=== PATIENT | male | born 1935 | race Caucasian/White ===

== ENCOUNTER 2017-04-20 07:28 | Emergency (ER) | payer OTHER ==
[2017-04-20 07:34] VITALS: RESP 16; TEMP 98.1
--- NOTE | 2017-04-20 07:52 | EDPHY ---
H & P Stated Complaint: sore throat Time Seen by Provider: 04/20/17 07:43 HPI/ROS: Chief Complaint: Sore throat HPI: 81-year-old male presenting with 1 day of sore throat and difficulty swallowing. Patient states that he had a little bit sore throat last night but had pain with swallowing his normal medications this morning. He has been exposed to his grandson who is noted to be a strep carrier. Denies any fevers or chills. Is handling his secretions and is tolerating fluids and food without significant difficulty. Does not have a history of prior throat infections. No fevers or chills. No difficulty breathing. No hearing changes. No change in his voice. ROS: 10 point Review of Systems is negative except as noted in the HPI. PMH: Prostate cancer, hypertension, Coffman's esophagus, knee surgery, minimal change disease Medications: Hydrochlorothiazide, Prilosec Allergies: Erythromycin Social History: No smoking, occasional alcohol, no recreational drug use Family History: non-contributory Physical Exam: Gen: Awake, Alert, No Distress HEENT: Nose: no rhinorrhea Eyes: PERRLA, EOMI Mouth: Moist mucosa mild diffuse oral pharyngeal erythema without exudate or edema Neck: Supple, no JVD, no lymphadenopathy, masses or fluctuance Chest: nontender, lungs clear to auscultation Heart: S1, S2 normal, no murmur Abd: Soft, non-tender, no guarding Back: no CVA tenderness, no midline tenderness Ext: no edema, non-tender Skin: no rash Neuro: CN II-XII intact, Sensation grossly intact, Strength 5/5 in bilateral upper and lower extremities - Personal History Current Tetanus/Diphtheria Vaccine: Unsure - Medical/Surgical History Hx Asthma: No Hx Chronic Respiratory Disease: No Hx Diabetes: No Hx Cardiac Disease: No Hx Renal Disease: No Hx Cirrhosis: No Hx Alcoholism: No Hx HIV/AIDS: No Hx Splenectomy or Spleen Trauma: No Other PMH: prostate cancer - Social History Smoking Status: Never smoked Constitutional: Initial Vital Signs Temperature (C) 36.7 C 04/20/17 07:32 Heart Rate 66 04/20/17 07:32 Respiratory Rate 16 04/20/17 07:32 Blood Pressure 164/90 H 04/20/17 07:32 O2 Sat (%) 95 04/20/17 07:32 O2 Delivery Mode Room Air Allergies/Adverse Reactions: erythromycin base [Erythromycin Base] Allergy (Verified 04/20/17 07:31) Home Medications: Medication Instructions Recorded Hydrochlorothiazide 10/31/09 Nexium 10/31/09 Zocor 10/31/09 Medical Decision Making ED Course/Re-evaluation: Strep screen is negative. Exam findings are consistent with viral pharyngitis. Will give him a dose of Decadron here as an anti-inflammatory. Patient will be discharged with follow up with primary care physician continue with ibuprofen and acetaminophen. He may use topical [id number] sprays as needed. - Data Points Laboratory Results: 04/20/17 04/20/17 Unknown 07:40 Group A Strep Screen NEGATIVE (NEGATIVE) Group A Strep DNA Pending Departure - Departure Disposition: Home, Routine, Self-Care Clinical Impression: Acute pharyngitis Condition: Good Instructions: Pharyngitis (ED) Additional Instructions: You may take ibuprofen alternating with acetaminophen as needed for fevers, chills, aches or pains. You may use [id number] topical throat sprays such as Chloraseptic according to label instructions. The steroids you took in the emergency department should provide you with relief over the next 72 hours. Follow up with her primary care physician in 2-3 days if symptoms are not improving. Referrals: Hunter Hussein MD [Primary Care Provider] - As per Instructions
[2017-04-20] MEDS ORDERED: DEXAMETHASONE 4 MG TAB PO ONE (08:04)
[2017-04-20 08:17] VITALS: BP 173/99; PULSE 61; O2SAT 94
== END 2017-04-20 08:18 | disposition home or self-care (01) ==
DX: J02.9 Acute pharyngitis, unspecified (principal); I10 Essential (primary) hypertension; Z85.46 Personal history of malignant neoplasm of prostate

== ENCOUNTER → 2018-08-11 | Outpatient (CLI) | payer OTHER | LOC: BMCIMAGING 13:26 | PROVIDERS: ATTEND Internal Medicine | DX: Z13.820 Encounter for screening for osteoporosis (principal); M85.89 Other specified disorders of bone density and structure, multiple sites; S22.060A Wedge compression fracture of T7-T8 vertebra, initial encounter for closed fracture; S32.010A Wedge compression fracture of first lumbar vertebra, initial encounter for closed fracture; C61 Malignant neoplasm of prostate ==

== ENCOUNTER → 2018-09-22 | Outpatient (CLI) | payer OTHER | LOC: BMCIMAGING 08:06 | PROVIDERS: ATTEND Internal Medicine | DX: R10.13 Epigastric pain (principal) ==

== ENCOUNTER → 2018-10-28 | Outpatient (CLI) | payer OTHER ==
[~2018-10-28] MED LIST: IOPAMIDOL (ISOVUE 370) 100 ML BTL IV ONE
== END ==
LOC: FIMAGING 08:17
PROVIDERS: ATTEND Physician Assistant
DX: R19.03 Right lower quadrant abdominal swelling, mass and lump (principal); K59.00 Constipation, unspecified; Z90.79 Acquired absence of other genital organ(s)
CPT/HCPCS: 74177; Q9967

== ENCOUNTER 2019-02-16 22:24 | Emergency (ER) | payer OTHER ==
[2019-02-16] MEDS ORDERED: HYDROCHLOROTHIAZIDE 25 MG TAB PO ONE (23:14)
--- NOTE | 2019-02-16 23:19 | EDPHY ---
H & P Stated Complaint: elevated bp Time Seen by Provider: 02/16/19 23:01 HPI/ROS: HPI The patient presents with elevated blood pressure which he noted tonight, blood pressure of 220/117 at 2 separate grocery stores. The patient has a known history of hypertension followed by his primary care doctor Dr. Britt. He initially was on hydrochlorothiazide, however about 1 year ago switched to lisinopril 10 mg. At the end of October he was admitted to the hospital and was noted to have blood pressures in the 160s to 170s over 90s and thus his lisinopril was increased to 20 mg a day with good result with blood pressures in the 130s over 70s. He has been periodically checking his blood pressures and has noted that lately they have been again in the 160s to 70s over 90s. Because of this he has been monitoring them closely and got these readings tonight. He denies any confusion, weakness, headache, chest pain, shortness of breath, vomiting, abdominal pain. REVIEW OF SYSTEMS 10 systems were reviewed and negative with the exception of the elements mentioned in the history of present illness. PMHx: Hypertension, history of prostate and colon cancer, primary care doctor is Dr. Britt Soc Hx: Lives at home with his PHYSICAL General Appearance: Alert, no distress Eyes: Pupils equal and round no pallor or injection ENT, Mouth: Mucous membranes moist Respiratory: There are no retractions, lungs are clear to auscultation Cardiovascular: Regular rate and rhythm Gastrointestinal: Abdomen is soft and non-tender, no masses, bowel sounds normal Neurological: A&O, moves all extremities Skin: Warm and dry, left shoulder with sutures in place Musculoskeletal: Neck is supple non tender Extremities: symmetrical, full range of motion Psychiatric: Patient is oriented X 3, there is no agitation Source: Patient Exam Limitations: No limitations - Personal History Current Tetanus/Diphtheria Vaccine: Yes - Medical/Surgical History Hx Asthma: No Hx Chronic Respiratory Disease: No Hx Diabetes: No Hx Cardiac Disease: No Hx Renal Disease: No Hx Cirrhosis: No Hx Alcoholism: No Hx HIV/AIDS: No Hx Splenectomy or Spleen Trauma: No Other PMH: prostate cancer. colon ca. l knee replacement - Social History Smoking Status: Never smoked Constitutional: Initial Vital Signs Temperature (C) 36.5 C 02/16/19 22:28 Heart Rate 71 02/16/19 22:28 Respiratory Rate 18 04/23/19 22:28 O2 Sat (%) 96 02/16/19 22:28 O2 Delivery Mode Room Air Allergies/Adverse Reactions: erythromycin base [Erythromycin Base] Allergy (Verified 04/20/17 07:31) Home Medications: Medication Instructions Recorded Nexium 10/31/09 Zocor 10/31/09 Aspirin 81mg (*) 02/16/19 Lisinopril 02/16/19 Hydrochlorothiazide [HCTZ (*)] 25 mg PO DAILY #30 tab 02/17/19 Medical Decision Making Differential Diagnosis: 83-year-old man with known history of hypertension presents with elevated blood pressures in the absence of symptoms. He has had some medication adjustments over the last 1 year. He has noted a slow rise in his blood pressure which was initially noted in October when he was admitted to the hospital which resulted in increase in his lisinopril from 10-20 mg. He since discharge has noted his blood pressure is rising once again, 160s over 90s for the most part, however today to 220s over 1 teens. Plan for treatment here with oral HCTZ, will check EKG and creatinine. Suspect we may need to add 2nd agent for blood pressure control. Patient's blood pressure improved minimally with oral HCTZ, he was given a dose of labetalol. This improved his blood pressure. EKG and labs were unremarkable. Given the significant elevation in his blood pressure tonight with trend of elevated blood pressures at home. I will start him on HCTZ 25 mg in addition to the lisinopril. I have advised him that he needs to follow up with his primary care doctor and check his blood pressures daily. - Data Points Laboratory Results: 02/16/19 23:36 POC Hgb 13.6 gm/dL L gm/dL (13.7-17.5) POC Hct 40 % % (40-51) POC Sodium 141 mEq/L mEq/L (135-145) POC Potassium 3.7 mEq/L mEq/L (3.3-5.0) POC Chloride 101 mEq/L mEq/L (97-110) POC Total CO2 26 mEq/L mEq/L (22-31) POC BUN 15 mg/dL mg/dL (7-23) POC Creatinine 1.2 mg/dL mg/dL (0.7-1.3) POC Glucose 95 mg/dL mg/dL (70-100) Medications Given: Discontinued Medications Hydrochlorothiazide (Hydrochlorothiazide) 25 mg PO EDNOW ONE Stop: 02/16/19 23:15 Last Admin: 02/16/19 23:30 Dose: 25 mg Labetalol HCl (Trandate Injection) 20 mg IVP ONCE ONE Stop: 02/17/19 00:25 Last Admin: 02/17/19 00:32 Dose: 20 mg Point of Care Test Results: Chemistry 02/16/19 23:36 POC Sodium 141 mEq/L mEq/L (135-145) POC Potassium 3.7 mEq/L mEq/L (3.3-5.0) POC Chloride 101 mEq/L mEq/L (97-110) POC Total CO2 26 mEq/L mEq/L (22-31) POC BUN 15 mg/dL mg/dL (7-23) POC Creatinine 1.2 mg/dL mg/dL (0.7-1.3) POC Glucose 95 mg/dL mg/dL (70-100) ISTAT H&H 02/16/19 23:36 POC Hgb 13.6 gm/dL L gm/dL (13.7-17.5) POC Hct 40 % % (40-51) Departure - Departure Disposition: Home, Routine, Self-Care Clinical Impression: Elevated blood pressure reading HTN (hypertension) Qualifiers: Hypertension type: unspecified Qualified Code(s): I10 - Essential (primary) hypertension Condition: Good Instructions: Chronic Hypertension (ED), Hypertensive Crisis (ED) Additional Instructions: Please check your blood pressure daily. If you get any low readings (90/60 or below) or if your feeling dizzy or lightheaded, I would like for you to follow up with your primary care doctor immediately and stop taking the hydrochlorothiazide. Referrals: Kevin Britt MD [Primary Care Provider] - As per Instructions Prescriptions: Hydrochlorothiazide [HCTZ (*)] 25 mg PO DAILY #30 tab
[2019-02-17] MEDS ORDERED: LABETALOL HCL 5 MG/ML 20 ML MDV IVP ONE (00:24)
[2019-02-17 00:52] VITALS: BP 177/104
--- NOTE | 2019-02-19 06:36 | CPEKG ---
Test Reason : OPEN Blood Pressure : / mmHG Vent. Rate : 064 BPM Atrial Rate : 068 BPM P-R Int : 219 ms QRS Dur : 093 ms QT Int : 431 ms P-R-T Axes : 008 -38 017 degrees QTc Int : 445 ms Sinus rhythm Atrial premature complexes Borderline prolonged OK interval Left axis deviation Abnormal R-wave progression, early transition Confirmed by Xuan Kenny ([id number]) on 02/19/2019 6:36:44 AM Referred By: Xuan Kenny Confirmed By:Xuan Kenny
== END 2019-02-17 01:15 | disposition home or self-care (01) ==
DX: I10 Essential (primary) hypertension (principal); Z85.038 Personal history of other malignant neoplasm of large intestine; Z85.46 Personal history of malignant neoplasm of prostate
CPT/HCPCS: 82435-PO; 82565-PO; 82947-PO; 84132-PO; 84295-PO; 84520-PO; 85014-ER; 96374